=== PATIENT | male | born 1985 | race Two or more races ===

== ENCOUNTER → 2025-02-27 | Outpatient (CLI) | payer OTHER, MEDICAID, SELFPAY ==
--- NOTE | 2025-02-27 15:08 | XR_ITS ---
Examination: Shoulder,left, 3 views Technique: Shoulder AP internal rotation, AP external rotation, Y view shoulder, 3 views Exam date and time :February 27, 2025 1626 hours INDICATIONS: Left shoulder pain 3 months FINDINGS: No shoulder fracture or dislocation Mild narrowing glenohumeral joint No calcific tendinitis IMPRESSION: Mild narrowing glenohumeral joint
--- NOTE | 2025-02-27 15:08 | XR_ITS ---
Examination: Humerus 2 views left Technique: Humerus, AP lateral 2 views Date and time of exam: February 27, 2025 1626 hours INDICATIONS: Shoulder and arm pain beginning 3 months ago FINDINGS: No shoulder fracture or dislocation Shaft humerus intact IMPRESSION: Negative for fracture or significant arthritic change
== END | disposition home or self-care (01) ==
PROVIDERS: PCP Physician Assistant; Referring Provider Physician Assistant; Visit Provider Physician Assistant
DX: M79.602 Pain in left arm (principal); M25.812 Other specified joint disorders, left shoulder
CPT/HCPCS: 73030; 73060